=== PATIENT | male | born 1950 | race Caucasian/White ===

== ENCOUNTER → 2017-04-29 | Outpatient (CLI) | payer BC ==
[~2017-04-29] MED LIST: ACYC-223 PO; ASPI1CHW26 PO; CYCL0.05 OPB; GADAVIST IV PRN; LOTEPREDNOL OPR
--- NOTE | 2017-04-29 14:05 | DIAGNOSTIC IMAGING REPORT ---
CAROTID DOPPLER NECK ART CLINICAL HISTORY: 66 years-old Male presenting with CEREBRAL VACULAR DISEASE,STROKE. TECHNIQUE: Real-time grayscale and color and spectral Doppler ultrasound imaging of the bilateral carotid arteries was performed. NASCET criteria was used in evaluating this study. COMPARISON: 12/30/2011. FINDINGS: Right: Common carotid: Patent. Peak systolic velocity 62 cm/s. Internal carotid artery: Patent. Peak systolic velocity 57 cm/s. External carotid artery: Patent. Peak systolic velocity 87 cm/s. Systolic ratio: 0.8. Left: Common carotid: Patent. Peak systolic velocity 67 cm/s. Internal carotid artery: Patent. Peak systolic velocity 42 cm/s. External carotid artery: Patent. Peak systolic velocity 73 cm/s. Systolic ratio: 0.6. Bilateral antegrade flow within the vertebral arteries. Reference ranges: Stenosis measurements are compared to reference velocity parameters. Normal ICA peak systolic velocity less than 125 cm/s. Normal ICA peak systolic velocity to common carotid artery velocity ratio is less than 2: less than 2 equates to less than 50% stenosis, 2-4 equates to 50-69% stenosis, greater than 4 equates to greater than or equal to 70% stenosis. Normal ICA end-diastolic velocity less than 40. Blood pressure Brachial: Right: 122/70 mmHg, Left: 127/65 mmHg. IMPRESSION: No hemodynamically significant stenosis seen within the carotid arteries. Electronically signed by: Rene Rangel M.D. 04/29/2017 2:04 PM Dictated Date/Time: 04/29/2017 2:01 PM
--- NOTE | 2017-04-29 14:51 | DIAGNOSTIC IMAGING REPORT ---
BRAIN COMBO CLINICAL HISTORY: CEREBRAL VACULAR DISEASE,STROKE mental status change COMPARISON STUDY: 12/30/2011 TECHNIQUE: Utilizing a 1.5 Maggie magnet and dedicated coil, multiplanar, multiecho imaging of the brain was performed pre and postcontrast administration. IV administration of 8 mL of Gadavist contrast was uneventful. FINDINGS: Diffusion-weighted images are negative for an acute ischemic event. Findings of moderate chronic small vessel change. Mild cerebellar as well as cerebral atrophy is present. Old left medial cerebellar infarct. Ventricular system is midline. Internal auditory canals are symmetric. Postcontrast images are considered negative for an enhancing lesion. IMPRESSION: 1. Small old left cerebellar infarct. 2. Mild cerebral atrophy. 3. Mild chronic small vessel change unaltered from the prior exam. 4. No evidence for an acute ischemic event. The above report was generated using voice recognition software. It may contain grammatical, syntax or spelling errors. Electronically signed by: Hugo Metz M.D. 04/29/2017 2:50 PM Dictated Date/Time: 04/29/2017 2:47 PM
== END | disposition home or self-care (01) ==
LOC: C.ULTR 13:08
PROVIDERS: ATTEND Psychiatry & Neurology Neurology
DX: I67.9 Cerebrovascular disease, unspecified (principal)